=== PATIENT | male | born 1965 | race Caucasian/White ===

== ENCOUNTER → 2018-06-07 | Outpatient (CLI) | payer BC ==
--- NOTE | 2018-06-13 09:20 | P.ARTDOP ---
Arterial Doppler LOWER EXTREMITY ARTERIAL DOPPLER: DATE OF SERVICE: 06/07/2018 Reason for study: Bilateral leg pain and numbness. Doppler waveforms: Multiphasic bilaterally throughout. Pulse volume recording: Normal configurations throughout. Pressure gradients: None. Ankle-brachial indices: Greater than 1 bilaterally. Toe pressures: 121 on the right, 141 on the left Impression: Normal study.
== END ==
LOC: RADUSWWP 13:26
PROVIDERS: ATTEND Family Medicine
DX: R09.89 Other specified symptoms and signs involving the circulatory and respiratory systems (principal)
CPT/HCPCS: 93923

== ENCOUNTER → 2019-03-05 | Outpatient (CLI) | payer BC ==
--- NOTE | 2019-03-16 16:54 | EM ---
EVENT MONITOR INDICATION: Cardiac arrhythmia. REFERRING PHYSICIAN: Dr. Noble. RESULTS: The baseline rhythm appeared to be a sinus mechanism. During the 7 days, the patient did have multiple episodes of what seems to be atrial fibrillation with an RVR. No evidence of any advanced AV block seen. No evidence of any sinus pause or sinus arrest seen. The patient reported no symptoms. CONCLUSION: 1. This is a 14 day event monitor. 2. Sinus rhythm as a baseline mechanism. 3. The patient did have multiple episodes of what seems to be atrial tachycardia with RVR. 4. No evidence of any advanced AV block seen. 5. There is no evidence of any sinus pause or sinus arrest. 6. The patient reported no symptoms during the study. MMODL / IJN: [id number] /
== END | disposition home or self-care (01) ==
LOC: RADECHMAIN 11:49
PROVIDERS: ATTEND Family Medicine
DX: I47.1 Supraventricular tachycardia (principal); I47.2 Ventricular tachycardia
CPT/HCPCS: 93270

== ENCOUNTER 2020-01-18 09:33 | Emergency (ER) | payer BC, OTHER ==
[2020-01-18 09:40] VITALS: RESP 18; TEMP 98.5
--- NOTE | 2020-01-18 10:04 | ED ---
General Adult HPI - General Chief complaint: Eye Problems Stated complaint: Visual Changes Time Seen by Provider: 01/18/20 09:37 Source: patient Mode of arrival: ambulatory Limitations: no limitations - History of Present Illness Initial comments: Dictation was produced using [employer] dictation software. please excuse any grammatical, word or spelling errors. This patient was cared for during a federal and state declared state of emergency secondary to Covid 19 Chief Complaint: 54-year-old male presents with headache and vision changes History of Present Illness: 54-year-old male who presents today with headache and vision changes. Patient states his symptoms of headache has been ongoing for the last week. Patient states he is hasn't had an headache in approximately 4 years. He states he has bitemporal headache that is very mild. He stopped denies any thunderclap acuity. He states that the headache is not severe. He denies any changes in symptoms or severity throughout the day. Denies any changes with position. Over the last 48 hours he's been having episodes of vision changes. He describes the vision changes as dark circles and flashing lights to the bitemporal visual coello of both eyes. States that these episodes were occurring approximately 2-3 times a day and lasts for 3-5 seconds. 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 At this moment in the emergency department he is asymptomatic. He wears glasses. The ROS documented in this emergency department record has been reviewed and confirmed by me. Those systems with pertinent positive or negative responses have been documented in the HPI. All other systems are other negative and/or noncontributory. PHYSICAL EXAM: General Impression: Alert and oriented x3, not in acute distress HEENT: Normocephalic atraumatic, extra-ocular movements intact, pupils equal and reactive to light bilaterally, mucous membranes moist. Cardiovascular: Heart regular rate and rhythm Chest: Able to complete full sentences, no retractions, no tachypnea Abdomen: abdomen soft, non-tender, non-distended, no organomegaly Musculoskeletal: Pulses present and equal in all extremities, no peripheral edema Motor: no focal deficits noted Neurological: CN II-XII grossly intact, no focal motor or sensory deficits noted Skin: Intact with no visualized rashes Psych: Normal affect and mood ED course: 54 y old male presents with mild headache and vision changes. Upon arrival are within acceptable limits. Vision testing shows 20/40 of the left, 20/40 in the right and 20/40 bilateral. Funduscopic exam is limited however does not show any acute findings. Patient is asymptomatic at this time. He denies any visual changes currently. Denies any headache at this moment. He describes his vision as bitemporal visual changes of both eyes. Considering pattern of his vision loss and no onset of headache. Computed tomography scan of the brain will be ordered. Computed tomography scan of brain is unremarkable. Radiology concerned about the medial vertebrobasilar system. Patient not having any signs or complaints of vertebrobasilar insufficiency. Computed tomography scan of the brain was ordered and found to be unremarkable. Case is discussed with Dr. 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 Patient given follow-up with Dr. Ortega for Monday. Patient told to contact the office and schedule appointment for that day. Her primary discussed. Disposition plan was discussed the patient is agreeable. - Related Data Home Medications Medication Instructions Recorded Confirmed Unknown Vitamins 1 dose PO DAILY 01/18/20 01/18/20 Allergies Allergy/AdvReac Type Severity Reaction Status Date / Time No Known Allergies Allergy Verified 01/18/20 10:40 Review of Systems ROS Statement: Those systems with pertinent positive or pertinent negative responses have been documented in the HPI. ROS Other: All systems not noted in ROS Statement are negative. Past Medical History Past Medical History: Hypertension History of Any Multi-Drug Resistant Organisms: None Reported Past Surgical History: Hernia Repair Past Psychological History: No Psychological Hx Reported Smoking Status: Never smoker Past Alcohol Use History: None Reported Past Drug Use History: None Reported General Exam Limitations: no limitations Course Vital Signs 01/18/20 01/18/20 09:37 10:42 Temperature 98.5 F Pulse Rate 67 65 Respiratory 18 18 Rate Blood Pressure 139/87 124/87 O2 Sat by Pulse 99 99 Oximetry Disposition Clinical Impression: Vision changes Disposition: HOME SELF-CARE Condition: Good Instructions (If sedation given, give patient instructions): Visual Floaters (ED) Additional Instructions: 1. Please follow-up with Dr. Ortega. Dr. Ortega requests that she call his office on Monday to be seen that day. 2. Please notify your primary care physician of your symptoms. Perhaps, you may benefit from neurologic evaluation by neurologist and/or brain MRI Is patient prescribed a controlled substance at d/c from ED?: No Referrals: Lew Noble MD [Primary Care Provider] - 1-2 days Selena Ortega MD [STAFF PHYSICIAN] - 1-2 days Time of Disposition: 11:00
--- NOTE | 2020-01-18 10:29 | CT ---
EXAMINATION TYPE: CT brain wo con DATE OF EXAM: 01/18/2020 COMPARISON: None HISTORY: Headache and visual changes CT DLP: 1114.4 mGycm Automated exposure control for dose reduction was used. FINDINGS: Calvarium intact. No acute hemorrhage or mass effect. No midline shift. Ventricular size compatible with the patient's age. Craniocervical junction maintained. Sinuses and orbits normal appearance. Vertebral basilar system is diminutive in size. IMPRESSION: 1. NO HEMORRHAGE OR MASS EFFECT. CORRELATE WITH MRI CLINICALLY WARRANTED. 2. DIMINUTIVE VERTEBROBASILAR SYSTEM CAN OCCASIONALLY BE ASSOCIATED WITH VERTEBROBASILAR INSUFFICIEN CY.
[2020-01-18 10:43] VITALS: BP 124/87; PULSE 65
== END 2020-01-18 11:07 | disposition home or self-care (01) ==
LOC: EC 09:33
DX: H53.9 Unspecified visual disturbance (principal)
CPT/HCPCS: 70450; 99284

== ENCOUNTER 2020-07-19 05:53 | Emergency (ER) | payer OTHER ==
[2020-07-19 06:01] VITALS: RESP 18
[2020-07-19] MEDS ORDERED: ASPIRIN 81 MG PO STA (06:13)
[2020-07-19] MEDS ORDERED: SODIUM CHLORIDE 0.9% 500 ML 500 ML IV STA (06:13)
--- NOTE | 2020-07-19 06:22 | ED ---
Arrhythmia/Palpitations HPI - General Chief Complaint: Arrhythmia/Palpitations Stated Complaint: Afib Time Seen by Provider: 07/19/20 06:02 Source: patient Mode of arrival: ambulatory - History of Present Illness Initial Comments: Patient is a 55-year-old male presenting to the emergency Department with complaints of palpitations. Patient states he woke up about 2 hours prior to arrival feeling palpitations. He does have a history of A. fib but has not had an episode of more than 9 months. He is not on blood thinners. He states he felt like he might of had episode after his first shot of the Pfizer vaccine approximately 3 weeks ago but it did not continue, so he did not think anything about it. Patient states he had a second dose of the vaccine 2 days ago and woke up this morning with the palpitations. He states it has been continuous for the past 2 hours so he came into the ER. He denies any chest pains, no nausea or vomiting, no fevers or chills. He denies any shortness of breath. He does not take any medications at this time. He states he just had a follow-up with his licensed land surveyor, Dr. Valerio, 2 months ago. They did discuss having the patient a when necessary medication for these occasional palpitations but since he has not had an episode that they did not start anything. He has no further complaints. Upon arrival to the ER, his heart rate is 111, rest of vitals are normal. - Related Data Previous Rx's Medication Instructions Recorded Metoprolol Tartrate [Lopressor] 12.5 mg PO BID PRN #10 dose 07/19/20 Allergies Allergy/AdvReac Type Severity Reaction Status Date / Time No Known Allergies Allergy Verified 07/19/20 07:38 Review of Systems ROS Statement: Those systems with pertinent positive or pertinent negative responses have been documented in the HPI. ROS Other: All systems not noted in ROS Statement are negative. Past Medical History Past Medical History: Atrial Fibrillation, Hypertension History of Any Multi-Drug Resistant Organisms: None Reported Past Surgical History: Hernia Repair Past Psychological History: No Psychological Hx Reported Smoking Status: Never smoker Past Alcohol Use History: None Reported Past Drug Use History: None Reported General Exam - General Exam Comments Initial Comments: GENERAL: Patient is well-developed and well-nourished. Patient is nontoxic and in no acute distress, but does seem slightly diaphoretic. HEAD: Atraumatic, normocephalic. EYES: Pupils equal round and reactive to light, extraocular movements intact, sclera anicteric, conjunctiva are normal. Eyelids were unremarkable. ENT: TMs normal, nares patent, oropharynx clear without exudates. Moist mucous membranes. NECK: Normal range of motion, supple without lymphadenopathy or JVD. LUNGS: Unlabored respirations. Breath sounds clear to auscultation bilaterally and equal. No wheezes rales or rhonchi. HEART: Irregular, tachycardia rate and rhythm without murmurs, rubs or gallops. ABDOMEN: Soft, nontender, normoactive bowel sounds. No guarding, no rebound. No masses appreciated. : Deferred MUSCULOSKELETAL: Normal extremities with adequate strength and normal range of motion, no pitting or edema. No clubbing or cyanosis. NEUROLOGICAL: Patient is alert and oriented x 3. Motor and sensory are also intact. Cranial nerves II through XII grossly intact. Symmetrical smile. Normal speech, normal gait. PSYCH: Normal mood, normal affect. SKIN: Warm, Dry, normal turgor, no rashes or lesions noted. Course Vital Signs 07/19/20 07/19/20 07/19/20 05:56 07:14 08:07 Temperature 97.9 F Pulse Rate 111 H 110 H 92 Respiratory 18 18 18 Rate Blood Pressure 130/90 120/84 104/91 O2 Sat by Pulse 98 99 Oximetry 07/19/20 08:19 Temperature Pulse Rate 94 Respiratory 18 Rate Blood Pressure 104/91 O2 Sat by Pulse Oximetry EKG Findings - EKG Comments: EKG Findings:: A. fib with RVR with premature conducted complexes, low-voltage QRS, no signs of an acute ischemia. Ventricular rate 1:15, QRS duration 84, QT 352. Repeat EKG at 801 shows A. fib, no acute process, ventricular rate 85, QRS duration 86, QT 360. Medical Decision Making - Medical Decision Making Patient is a 55-year-old male presenting with palpitations that started last 2 hours. He does have a history of A. fib but has not had episode last 9 months. He has a follow-up with his licensed land surveyor, Dr. Valerio 2 months ago. No other symptoms today besides the palpitations. His EKG reads A. fib with RVR, ventricular rate of 115. Patient was given aspirin, bolus of fluids. Patient's lab work is unremarkable, normal troponin. Patients heart rate remained in the 110s. Patient was given IV metoprolol, heart rate has been stable and in the upper 80's to 90's. Patient is stable for discharge. I'll give him a prescription for metoprolol to take for increased heart rate, recommended daily aspirin. He is in agreement with this plan of care. He'll follow up with his licensed land surveyor tomorrow. Strict return parameters were discussed with the patient and he verbalized understanding. Case discussed with Dr. Coyle. - Lab Data Result diagrams: 07/19/20 06:07 07/19/20 06:07 Lab Results 07/19/20 07/19/20 07/19/20 Range/Units 06:07 06:07 06:07 WBC 6.8 (3.8-10.6) k/uL RBC 5.52 (4.30-5.90) m/uL Hgb 16.2 (13.0-17.5) gm/dL Hct 49.5 (39.0-53.0) % MCV 89.7 (80.0-100.0) fL MCH 29.4 (25.0-35.0) pg MCHC 32.8 (31.0-37.0) g/dL RDW 13.0 (11.5-15.5) % Plt Count 253 (150-450) k/uL MPV 7.7 Neutrophils % 58 % Lymphocytes % 28 % Monocytes % 8 % Eosinophils % 3 % Basophils % 1 % Neutrophils # 3.9 (1.3-7.7) k/uL Lymphocytes # 1.9 (1.0-4.8) k/uL Monocytes # 0.6 (0-1.0) k/uL Eosinophils # 0.2 (0-0.7) k/uL Basophils # 0.0 (0-0.2) k/uL PT 9.7 (9.0-12.0) sec INR 0.9 (<1.2) APTT 24.4 (22.0-30.0) sec Sodium 138 (137-145) mmol/L Potassium 4.2 (3.5-5.1) mmol/L Chloride 105 (98-107) mmol/L Carbon Dioxide 27 (22-30) mmol/L Anion Gap 6 mmol/L BUN 21 H (9-20) mg/dL Creatinine 0.80 (0.66-1.25) mg/dL Est GFR (CKD-EPI)AfAm >90 (>60 ml/min/1.73 sqM) Est GFR (CKD-EPI)NonAf >90 (>60 ml/min/1.73 sqM) Glucose 104 H (74-99) mg/dL Calcium 10.1 (8.4-10.2) mg/dL Magnesium 1.9 (1.6-2.3) mg/dL Total Bilirubin 0.5 (0.2-1.3) mg/dL AST 45 (17-59) U/L ALT 52 H (4-49) U/L Alkaline Phosphatase 52 (38-126) U/L Troponin I (0.000-0.034) ng/mL Total Protein 7.5 (6.3-8.2) g/dL Albumin 4.8 (3.5-5.0) g/dL TSH 2.010 (0.465-4.680) mIU/L 07/19/20 Range/Units 06:07 WBC (3.8-10.6) k/uL RBC (4.30-5.90) m/uL Hgb (13.0-17.5) gm/dL Hct (39.0-53.0) % MCV (80.0-100.0) fL MCH (25.0-35.0) pg MCHC (31.0-37.0) g/dL RDW (11.5-15.5) % Plt Count (150-450) k/uL MPV Neutrophils % % Lymphocytes % % Monocytes % % Eosinophils % % Basophils % % Neutrophils # (1.3-7.7) k/uL Lymphocytes # (1.0-4.8) k/uL Monocytes # (0-1.0) k/uL Eosinophils # (0-0.7) k/uL Basophils # (0-0.2) k/uL PT (9.0-12.0) sec INR (<1.2) APTT (22.0-30.0) sec Sodium (137-145) mmol/L Potassium (3.5-5.1) mmol/L Chloride (98-107) mmol/L Carbon Dioxide (22-30) mmol/L Anion Gap mmol/L BUN (9-20) mg/dL Creatinine (0.66-1.25) mg/dL Est GFR (CKD-EPI)AfAm (>60 ml/min/1.73 sqM) Est GFR (CKD-EPI)NonAf (>60 ml/min/1.73 sqM) Glucose (74-99) mg/dL Calcium (8.4-10.2) mg/dL Magnesium (1.6-2.3) mg/dL Total Bilirubin (0.2-1.3) mg/dL AST (17-59) U/L ALT (4-49) U/L Alkaline Phosphatase (38-126) U/L Troponin I <0.012 (0.000-0.034) ng/mL Total Protein (6.3-8.2) g/dL Albumin (3.5-5.0) g/dL TSH (0.465-4.680) mIU/L Disposition Clinical Impression: Atrial fibrillation Disposition: HOME SELF-CARE Condition: Stable Instructions (If sedation given, give patient instructions): A-fib (Atrial Fibrillation) (ED) Additional Instructions: Please return to the Emergency Department if symptoms worsen or any other concerns. Recommend daily aspirin. Take metoprolol twice daily as needed for symptoms, elevated heart rate. Follow-up with your licensed land surveyor tomorrow. Prescriptions: Metoprolol Tartrate [Lopressor] 12.5 mg PO BID PRN #10 dose PRN Reason: Cardiac Arrhythmia Is patient prescribed a controlled substance at d/c from ED?: No Referrals: Lew Noble MD [Primary Care Provider] - 1-2 days Anam Valerio DO [STAFF PHYSICIAN] - 1-2 days Time of Disposition: 08:37
[2020-07-19 06:32] LABS: Basophils % (A) 1 %; Eosinophils # (A) 0.2 k/uL (0-0.7); Eosinophils % (A) 3 %; HCT 49.5 % (39.0-53.0); HGB 16.2 gm/dL (13.0-17.5); Lymphocytes # (A) 1.9 k/uL (1.0-4.8); Lymphocytes % (A) 28 %; MCH 29.4 pg (25.0-35.0); MCHC 32.8 g/dL (31.0-37.0); MCV 89.7 fL (80.0-100.0); Mean Platelet Volume 7.7; Monocytes # (A) 0.6 k/uL (0-1.0); Monocytes % (A) 8 %; Neutrophils # (A) 3.9 k/uL (1.3-7.7); Neutrophils % (A) 58 %; Platelet Count 253 k/uL (150-450); RBC 5.52 m/uL (4.30-5.90); WBC 6.8 k/uL (3.8-10.6)
--- NOTE | 2020-07-19 06:36 | XR ---
EXAMINATION TYPE: XR chest 2V DATE OF EXAM: 07/19/2020 COMPARISON: NONE HISTORY: Dysrhythmia. Atrial fibrillation. TECHNIQUE: Frontal and lateral views of the chest are obtained. FINDINGS: Overlying EKG leads. There is no suspicious focal air space opacity, pleural effusion, or pneumothorax seen. The cardiac silhouette size is within normal limits. The osseous structures are intact. IMPRESSION: No acute process.
[2020-07-19 06:42] LABS: ALT 52 U/L (4-49); AST 45 U/L (17-59); African American GFR (CKD) >90 (>60 ml/min/1.73 sqM); Albumin 4.8 g/dL (3.5-5.0); Alkaline Phosphatase 52 U/L (38-126); Anion Gap 6 mmol/L; Blood Urea Nitrogen 21 mg/dL (9-20); Calcium 10.1 mg/dL (8.4-10.2); Carbon Dioxide 27 mmol/L (22-30); Chloride 105 mmol/L (98-107); Glucose 104 mg/dL (74-99); Magnesium 1.9 mg/dL (1.6-2.3); Non-African American GFR(CKD) >90 (>60 ml/min/1.73 sqM); Potassium 4.2 mmol/L (3.5-5.1); Sodium 138 mmol/L (137-145); Total Bilirubin 0.5 mg/dL (0.2-1.3); Total Protein 7.5 g/dL (6.3-8.2)
[2020-07-19 07:15] VITALS: TEMP 97.9
[2020-07-19 07:15] LABS: INR 0.9 (<1.2); Partial Thromboplastin Time 24.4 sec (22.0-30.0); Prothrombin Time 9.7 sec (9.0-12.0)
[2020-07-19] MEDS ORDERED: SODIUM CHLORIDE 0.9% 500 ML 500 ML IV ONE (07:22)
[2020-07-19] MEDS ORDERED: METOPROLOL TARTRATE 5 MG/5 ML VIAL IVP STA (07:23)
[2020-07-19 08:08] VITALS: BP 104/91
[2020-07-19 08:20] VITALS: PULSE 94
== END 2020-07-19 08:55 | disposition home or self-care (01) ==
LOC: EC 05:53
DX: I48.91 Unspecified atrial fibrillation (principal); I10 Essential (primary) hypertension
CPT/HCPCS: 36415; 71046; 80053; 83735; 84443; 84484; 85025; 85610; 85730; 93005; 96361; 96374; 99285

== ENCOUNTER 2020-11-10 06:09 | Day surgery (SDC) | payer OTHER ==
[2020-11-05 15:40] VITALS: BMI 28.7
[~2020-11-10 06:09] MED LIST: SODIUM CHLORIDE 0.9% 1,000 ML IV SCH
[2020-11-10] MEDS ORDERED: LIDOCAINE 1% INJ 10MG/ML (20 ML MDV) ONE ×2 (07:01→07:54)
[2020-11-10] MEDS ORDERED: ePHEDrine SULFATE/0.9% NACL/PF 50 MG/5 ML SYRINGE IV ONE (07:54)
[2020-11-10] MEDS ORDERED: HEPARIN SODIUM,PORCINE 10,000 UNIT/ML 1 ML VIAL ONE (07:54)
[2020-11-10] MEDS ORDERED: SUCCINYLCHOLINE CHLORIDE VIAL 200 MG/10 ML VIAL IV ONE (07:54)
[2020-11-10] MEDS ORDERED: PROPOFOL 10 MG/ML 20 ML VIAL IV ONE (07:54)
[2020-11-10] MEDS ORDERED: fentaNYL (PF) 50 MCG/ML 2 ML AMP ONE (07:54)
[2020-11-10] MEDS ORDERED: ISOPROTERENOL 250 MCG/1.25 ML SYR IV ONE (07:54)
[2020-11-10] MEDS ORDERED: PROTAMINE SULFATE 10 MG/ML 5 ML VIAL IV ONE (07:54)
[2020-11-10] MEDS ORDERED: PHENYLEPHRINE-0.9% NACL SYG 1,000 MCG/10 ML SYRINGE ONE (07:54)
[2020-11-10] MEDS ORDERED: MIDAZOLAM 2 MG/2 ML VIAL ONE (07:54)
[2020-11-10] MEDS ORDERED: LIDOCAINE 1% INJ 10MG/ML (20 ML MDV) SQ ONE (08:38)
[2020-11-10] MEDS ORDERED: HEPARIN SOD,PORK IN 0.45% NACL 25,000 UNIT in 0.45% NACL 1 250ML.BAG IV ONE (08:45)
[2020-11-10] MEDS ORDERED: ACETAMINOPHEN TAB 325 MG TAB PO PRN (10:52)
--- NOTE | 2020-11-10 10:59 | P.PRLE ---
RE: Gagan Adames Dear Arnold Gagan underwent successful pulmonary vein isolation/cryoablation of the pulmonary veins for management of drug refractory paroxysmal atrial fibrillation, without any acute complications Following that, high dose Isuprel and burst stimulation was employed in the high right atrium and the coronary sinus without induction of any further atrial fibrillation He will continue Xarelto for now for a minimum of 3 months Thank you for entrusting me with the care of the patient Warm regards Sincerely Emil Humphrey
[2020-11-10] MEDS ORDERED: IOPAMIDOL-370 50ML BTL INJ ONE (11:00)
--- NOTE | 2020-11-10 11:01 | P.EPPROC ---
- EP Procedure Note Electrophysiology Procedure Note: PROCEDURE A. fib ablation DIAGNOSIS Atrial fibrillation, symptomatic, refractory to therapy RESULT No left atrial appendage mass seen on intracardiac echo Successful A. fib ablation/pulmonary vein isolation of all veins using cryo- ablation Complete entrance block in all 4 veins confirmed No evidence for phrenic nerve injury Esophageal deflection YES PROCEDURE DETAILS Patient was brought to the EP lab in a fasting state. Written informed consent was obtained prior to the procedure. Procedure performed under general anesthesia After initial muscle relaxant use, muscle relaxants were not given thereafter in order to assess phrenic nerve during procedure. Patient prepped and draped as per protocol Full cryo-set up with standard preparation of the cryoablation tools done. Femoral Venous access obtained on the right and left groins Venous and arterial Sheaths placed. Diagnostic catheters for the high right atrium, phrenic nerve stimulation and pacing, His bundle, RV and coronary sinus placed Intracardiac echo catheter placed. Long sheath placed in the right atrium Left and right transseptal catheterization performed under intracardiac echo guidance. Intravenous heparin with aCT above 300 Later, catheter positioning and balloon positioning in the left atrium, under i ntracardiac echo guidance Diagnostic EP study with Drug infusion Coronary sinus pacing and recording Baseline measurements Sinus cycle length 765 ms, QRS 123 ms AH 60 HV 48 ms Atrial pacing performed from the high right atrium and the coronary sinus Burst stimulation on and off Isuprel Sinus node recovery times at 600 504 100 ms were 915, 960 and 898 ms AV node Wenckebach block 240 ms Transseptal catheterization performed RA pressure 15/10/13 LA pressure 21/5/15 Transseptal catheterization performed with standard sheath. The cryoablation sheath was then placed with an over the wire exchange without any acute complications. All 4 pulmonary veins were isolated in the following sequence: Left superior followed by left inferior followed by right superior followed by right inferior The cryo-ablation balloon was placed at the os of each vein 1.5 mL of IV dye was injected to confirm an occluded vein Goal during cryoablation was to achieve complete occlusion of the pulmonary vein, achieve -30 degrees C at 30 seconds and achieve -40 degrees C at 60 seconds and a time to effect of less than 60-90 seconds, . If not the balloon was repositioned to obtain this result After completion of Cryoblation with durations from 180-240 seconds, entrance block was confirmed with the Attain circular catheter in a roving fashion around the antrum of the pulmonary veins Phrenic nerve pacing was performed from the SVC, right innominate vein area and diaphragm voltage was monitored. Diaphragmatic contractions were also monitored manually for strength of contraction. Parameter goals for each cryo freeze Complete occlusion of the appropriate vein -30 degrees C by 30 seconds -40 degrees C by 60 seconds Minimum between minus 40-55 degrees C Thaw time greater than 10 seconds Balloon visualized by intracardiac echo The esophagus was intubated. Esophageal Temperature monitoring with a CIRCA catheter formed. Esophageal deflection for hypothermia of the esophagus below 30 degrees C Left superior pulmonary vein Complete isolation, entrance block Left inferior pulmonary vein Complete isolation, entrance block Right superior pulmonary vein, during phrenic nerve pacing Complete isolation, entrance block Right inferior pulmonary vein, during phrenic nerve pacing Complete isolation, entrance block At the end of the procedure the Achieve catheter was once again used to check for entrance block Phrenic nerve stimulation was performed to confirm diaphragmatic stimulation the end of the procedure Cine fluoroscopy was performed at the very end of the procedure to confirm movement of both diaphragms with inspiration and expiration At the end of the procedure the patient was extubated Heparin was reversed Venous sheaths were removed and hemostasis assured PROCEDURES PERFORMED Diagnostic EP study CS pacing and recording Left and right transseptal catheterization Catheter the mapping of the tachycardia (NOT 3D mapping) Intracardiac echocardiography Pulmonary vein isolation with transseptal and comprehensive EPS, [id number] Drug Infusion [id number]
[2020-11-10] MEDS ORDERED: ACETAMINOPHEN IV (For NPO) 1,000 MG in EMPTY BAG 1 BAG IVPB ONE (12:15)
[2020-11-10] MEDS: FLECAINIDE 50 MG TAB PO SCH (19:33)
[2020-11-10] MEDS ORDERED: RIVAROXABAN 20 MG TAB PO SCH (21:00)
[2020-11-11] MEDS ORDERED: FUROSEMIDE 40 MG TAB PO STA (07:44)
[2020-11-11 07:53] VITALS: BP 101/66; PULSE 88; RESP 16; TEMP 98.3
[2020-11-11] MEDS: FLECAINIDE 50 MG TAB PO SCH (08:22)
[2020-11-11] MEDS ORDERED: lisinopriL 20 MG TAB PO SCH (09:00)
[2020-11-11] MEDS ORDERED: COLCHICINE 0.6 MG EACH PO SCH (09:00)
--- NOTE | 2020-11-11 14:30 | DS ---
DISCHARGE SUMMARY Mr. Adames is a patient of Dr. Valerio who underwent cryoablation of the pulmonary veins for paroxysmal atrial fibrillation with breakthrough episodes on class 1 antiarrhythmic drug therapy. He tolerated the procedure well without any complications. This morning he is doing well. He is still lying in bed. His groins have healed well. There is no hematoma. Minimal ooze from the puncture site that gets oozing from the crack. He does have a cough and on and off, but no expectoration. On examination, he has crackles in the bases. Heart sounds are normal. No rub. He does a mild pleuritic chest discomfort when he takes a deep breath and when he coughs very hard. Vitals are stable. Extremities are warm. Pulses normal. Groins have healed well. No murmurs, no gallops, no rub. Crackles at both bases. IMPRESSION: 1. Paroxysmal atrial fibrillation, symptomatic. 2. Is refractory to class 1 antiarrhythmic drug therapy. 3. Status post cryoablation of the pulmonary veins performed successfully yesterday. 4. Access sites were closed with Vascade successfully. No major bleeding issues. 5. PLAN: Patient was instructed to ambulate around in his room and not lie in bed any further. 1. Incentive spirometer. 2. P.O. Lasix 40 mg x1 dose only. 3. Colchicine 0.6 mg for pruritic chest discomfort. 4. His 12-lead EKG was reviewed and shows normal sinus rhythm with normal cardiac intervals, normal ST segments. 5. Telemetry does not show any atrial fibrillation either. PLAN: As long as he is hemodynamically stable and his groins do well upon walking around in the hallways today, he should be able to go home this morning and follow up with Dr. Valerio in about a week. He has been instructed to continue flecainide for about a month and then this may be discontinued and he is instructed to continue his anticoagulation for a minimum of 3 months. I have also prescribed an incentive spirometer for him. MMODL / IJN: [id number] /
== END 2020-11-11 11:30 | disposition home or self-care (01) ==
LOC: CATHEP 06:09 → 6NMEDSUR 12:09 → CATHEP 11-11 11:30
PROVIDERS: ATTEND Internal Medicine Clinical Cardiac Electrophysiology
DX: I48.0 Paroxysmal atrial fibrillation (principal); I49.3 Ventricular premature depolarization; I10 Essential (primary) hypertension; Z72.0 Tobacco use; Z79.899 Other long term (current) drug therapy
CPT/HCPCS: 93623; 93662; 93609; 93656; C1759; C1894 ×4; C1769 ×4; C1760; C1730 ×2; C1893; C1733; C1766; J2250; J0330; J2720; J1644 ×2; J2001; J3010; J2370; J2704; Q9967